=== PATIENT | female | born 1970 | race Asian ===

== ENCOUNTER → 2018-03-06 | Outpatient (CLI) | payer BC ==
[2018-03-06] MEDS: SOD CHLORIDE 0.9% 100 ML (17:06)
[2018-03-06] MEDS: IOHEXOL 300MG/ML 150 ML BTL (17:06)
== END | disposition home or self-care (01) ==
LOC: C/S 14:45
DX: R31.9 Hematuria, unspecified (principal)
CPT/HCPCS: 74170